=== PATIENT | female | born 1995 | race Caucasian/White ===

== ENCOUNTER 2019-01-28 03:53 | Emergency (ER) | payer OTHER ==
[2019-01-28 05:02] LABS: Absolute Lymphocytes (CBC) 1.9 K/uL (0.7-4.9); Basophils % 0.4 % (0-1.3); Eosinophils % 0.6 % (0-4.4); MPV 7.8 fL (7.6-11.3); Monocytes % 5.4 % (3.3-12.3); RBC Red Blood Cell Count 4.44 M/uL (3.86-4.86)
[2019-01-28 05:05] LABS: Urine Appearance TURBID; Urine Blood 3+ (NEG); Urine Color RED; Urine Glucose TRACE (NEG); Urine Protein 2+ (NEG); Urine Specific Gravity 1.025 (1.005-1.030)
[2019-01-28 05:09] LABS: Urine Bilirubin NEGATIVE (NEG); Urine Microscopic Reflex ORDER UMIC
[2019-01-28 05:12] LABS: BUN Blood Urea Nitrogen 6 mg/dL (7-18); Bicarbonate 25 mmol/L (21-32); Glucose Level 90 mg/dL (74-106); Potassium 3.7 mmol/L (3.5-5.1); Sodium Level 140 mmol/L (136-145)
[2019-01-28 05:23] LABS: Urine RBC TNTC /HPF (NONE SEEN)
[2019-01-28 05:26] LABS: Urine Mucus 2+ /HPF (NONE SEEN)
[2019-01-28 05:27] LABS: Urine Bacteria >50 /HPF (<20); Urine Culture Reflex Order REFLEXED
[2019-01-28] MEDS ORDERED: ACETAMINOPHEN 500 MG TAB PO PRN (07:34)
[2019-01-28] MEDS ORDERED: ONDANSETRON 4 MG/2 ML VIAL IV PRN (07:34)
[2019-01-28] MEDS ORDERED: MORPHINE 2 MG/ML SYR IV PRN (07:34)
[2019-01-28] MEDS ORDERED: NA CHLORIDE 0.9% 1,000 ML IV SCH (08:00)
--- NOTE | 2019-01-28 09:29 | RAD REPORT ---
EXAM DESCRIPTION: US - 1St Trimest Single 1St Fetus - 01/28/2019 9:20 am CLINICAL HISTORY: with pelvic pain and vaginal bleeding COMPARISON: None. FINDINGS: The uterus measures 12 x 7 x 11 centimeters. A normal appearing gestational sac is presen t within the endometrium. Within this is a yolk sac and pole with a crown-rump length 6.4 centi meters. Cardiac activity 165 beats per minute. 2.3 centimeters subchorionic bleed Partial placenta previa Right ovary normal in size and echotexture. Left ovary not seen. An adnexal mass is not noted. No significant free fluid is seen. IMPRESSION: Single live intrauterine with an estimated gestational age 12 weeks 6 days. E DD 08/06/2019 Small subchorionic bleed Partial placenta previa If survey is desired it should be performed in about 5-6 weeks
--- NOTE | 2019-01-28 09:35 | EDPHYS ---
Physician Documentation [facility] Name: Arnel Dhaliwal Age: 23 yrs Sex: Female : 1995 Arrival Date: 01/28/2019 Time: 03:58 Bed 16 Private MD: ED Physician Talib Gaines HPI: 01/28 06:20 This 23 yrs old Female presents to ER via Ambulatory with complaints of gs Vaginal Bleeding, + Preg <12wks. 06:20 The patient presents to the emergency department with vaginal bleeding, that is gs moderate. The estimated gestational age is 12 weeks. Associated signs and symptoms: Pertinent positives: cramping. The patient has not experienced similar symptoms in the past. PRODUCT SAFETY LEAD: 04:10 2, Full Term 1, Premature 0, 0, Living 1 jb4 Historical: - Allergies: 04:10 No Known Allergies; jb4 - Home Meds: 04:10 None [Active]; jb4 - PMHx: 04:10 None; jb4 - PSHx: 04:10 None; jb4 - Immunization history:: Adult Immunizations up to date. - Social history:: Smoking status: Patient/guardian denies using tobacco, Patient/guardian denies using alcohol. - Ebola Screening: : No symptoms or risks identified at this time. ROS: 06:20 All other systems are negative. gs Exam: 06:20 Head/Face: Normocephalic, atraumatic. Eyes: Pupils equal round and reactive to light, gs extra-ocular motions intact. Lids and lashes normal. Conjunctiva and sclera are non-icteric and not injected. Cornea within normal limits. Periorbital areas with no swelling, redness, or edema. ENT: Nares patent. No nasal discharge, no septal abnormalities noted. Tympanic membranes are normal and external auditory canals are clear. Oropharynx with no redness, swelling, or masses, exudates, or evidence of obstruction, uvula midline. Mucous membranes moist. Neck: Trachea midline, no thyromegaly or masses palpated, and no cervical lymphadenopathy. Supple, full range of motion without nuchal rigidity, or vertebral point tenderness. No Meningismus. Chest/axilla: Normal chest wall appearance and motion. Nontender with no deformity. No lesions are appreciated. Cardiovascular: Regular rate and rhythm with a normal S1 and S2. No gallops, murmurs, or rubs. Normal PMI, no JVD. No pulse deficits. Respiratory: Lungs have equal breath sounds bilaterally, clear to auscultation and percussion. No rales, rhonchi or wheezes noted. No increased work of breathing, no retractions or nasal flaring. Abdomen/GI: Soft, non-tender, with normal bowel sounds. No distension or tympany. No guarding or rebound. No evidence of tenderness throughout. Back: No spinal tenderness. No costovertebral tenderness. Full range of motion. Skin: Warm, dry with normal turgor. Normal color with no rashes, no lesions, and no evidence of cellulitis. MS/ Extremity: Pulses equal, no cyanosis. Neurovascular intact. Full, normal range of motion. Neuro: Awake and alert, GCS 15, oriented to person, place, time, and situation. Cranial nerves II-XII grossly intact. Motor strength 5/5 in all extremities. Sensory grossly intact. Cerebellar exam normal. Normal gait. 06:20 Constitutional: The patient appears alert, awake. 06:20 : Pelvic Exam: External exam: minimal bleeding, the nurse was present for the exam. Vital Signs: 04:10 BP 134 / 99; Pulse 80; Resp 16; Temp 98.5(O); Pulse Ox 99% on R/A; Weight 81.65 kg (R); jb4 Height 5 ft. 3 in. (160.02 cm) (R); Pain 6/10; 05:00 BP 125 / 84; Pulse 78; Resp 16; Pulse Ox 100% on R/A; jb4 06:00 BP 112 / 81; Pulse 76; Resp 18; Pulse Ox 100% ; jb4 07:00 BP 123 / 80; Pulse 80; Resp 17; Temp 98.3(O); Pulse Ox 99% on R/A; Pain 0/10; rb1 08:00 BP 118 / 79; Pulse 84; Resp 16; Temp 98.5(O); Pulse Ox 100% on R/A; Pain 0/10; rb1 09:50 BP 139 / 75 Supine; Pulse 73; Pulse Ox 100% on R/A; rb1 09:52 BP 124 / 81 Sitting; Pulse 66; Pulse Ox 100% on R/A; rb1 09:54 BP 131 / 84 Standing; Pulse 91; Pulse Ox 100% ; rb1 10:50 BP 132 / 80; Pulse 65; Resp 16; Temp 98.7(O); Pulse Ox 100% on R/A; Pain 0/10; rb1 04:10 Body Mass Index 31.89 (81.65 kg, 160.02 cm) jb4 MDM: 04:18 Patient medically screened. 01/28 04:21 Order name: Abo/rh Typing 01/28 04:21 Order name: Basic Metabolic Panel 01/28 04:21 Order name: CBC with Diff; Complete Time: 09:27 01/28 04:21 Order name: ABO/RH typing; Complete Time: 09:27 EDMS 01/28 04:21 Order name: Basic Metabolic Panel; Complete Time: 09:27 EDOK 01/28 05:00 Order name: Urinalysis; Complete Time: 09:27 EDOK 01/28 04:21 Order name: 1st Trimest Single 1st Fetus; Complete Time: 09:33 01/28 05:12 Order name: Urine Microscopic Only; Complete Time: 09:27 EDOK 01/28 05:28 Order name: Urine Culture EDOK 01/28 06:22 Order name: ABO/RH no charge; Complete Time: 09:27 EDOK 01/28 08:56 Order name: Quantitative Hcg [facility] 01/28 04:21 Order name: IV Saline Lock; Complete Time: 04:52 01/28 04:21 Order name: Labs collected and sent; Complete Time: 04:52 01/28 04:21 Order name: NPO; Complete Time: 04:37 01/28 04:21 Order name: Urine Dipstick-Ancillary (obtain specimen); Complete Time: 04:58 01/28 07:41 Order name: CONS Pharmacy Consult EDOK 01/28 07:42 Order name: Regular EDOK Administered Medications: 09:55 Drug: NS 0.9% 1000 ml Route: IV; Rate: 1 bolus; Site: left antecubital; rb1 11:03 Follow up: IV Status: Completed infusion rb1 Disposition: 01/28/19 09:34 Discharged to Home. Impression: Threatened . - Condition is Stable. - Discharge Instructions: Threatened Miscarriage, Vaginal Bleeding During , First Trimester, Vaginal Bleeding During , Second Trimester, First Trimester of , [id number], First Trimester of , Threatened Miscarriage, [id number], Pelvic Rest. - Prescriptions for Vitamin 27- 0.8 mg Oral Tablet - take 1 tablet by ORAL route once daily; 30 tablet. - Medication Reconciliation Form, Thank You Letter, Antibiotic Education, Prescription Opioid Use form. - Follow up: Private Physician; When: 2 - 3 days; Reason: Recheck today's complaints, Continuance of care, Re-evaluation by your physician. Follow up: Matti Young MD; When: 2 - 3 days; Reason: Recheck today's complaints, Re-evaluation by your physician. - Problem is new. - Symptoms have improved. Signatures: Dispatcher [employer] EDOK Talib Gaines MD MD cha Barber, Rebecca, RN RN rb1 Alex Garrido RN RN jb4 Tommie Villa MD MD gs Corrections: (The following items were deleted from the chart) 07:52 07:41 Comprehensive Metabolic Panel ordered. [facility] EDOK 07:52 07:41 Comprehensive Metabolic Panel ordered. [facility] EDOK 11:07 09:34 01/28/2019 09:34 Discharged to Home. Impression: Threatened . Condition rb1 is Stable. Forms are Medication Reconciliation Form, Thank You Letter, Antibiotic Education, Prescription Opioid Use. Follow up: Private Physician; When: 2 - 3 days; Reason: Recheck today's complaints, Continuance of care, Re-evaluation by your physician. Follow up: Matti Young; When: 2 - 3 days; Reason: Recheck today's complaints, Re-evaluation by your physician. Problem is new. Symptoms have improved. muriel
--- NOTE | 2019-01-28 09:35 | ER ---
Nurse's Notes [facility] Name: Arnel Dhaliwal Age: 23 yrs Sex: Female : 1995 Arrival Date: 01/28/2019 Time: 03:58 Bed 16 Private MD: Diagnosis: Threatened Presentation: 01/28 04:10 Presenting complaint: Patient states: I woke up and was bleeding a lot and I am 12 jb4 weeks . 04:10 Transition of care: patient was not received from another setting of care. Onset of jb4 symptoms was January 28, 2019. Risk Assessment: Do you want to hurt yourself or someone else? Patient reports no desire to harm self or others. Initial Sepsis Screen: Does the patient meet any 2 criteria? No. Patient's initial sepsis screen is negative. Does the patient have a suspected source of infection? No. Patient's initial sepsis screen is negative. Care prior to arrival: None. 04:10 Method Of Arrival: Ambulatory jb4 04:10 Acuity: RAYMOND 3 jb4 04:10 Acuity: RAYMOND 3 jb4 POLITICAL CONSULTANT: 04:10 2, Full Term 1, Premature 0, 0, Living 1 jb4 Historical: - Allergies: 04:10 No Known Allergies; jb4 - Home Meds: 04:10 None [Active]; jb4 - PMHx: 04:10 None; jb4 - PSHx: 04:10 None; jb4 - Immunization history:: Adult Immunizations up to date. - Social history:: Smoking status: Patient/guardian denies using tobacco, Patient/guardian denies using alcohol. - Ebola Screening: : No symptoms or risks identified at this time. Screenin:00 Abuse screen: Denies threats or abuse. Nutritional screening: No deficits noted. jb4 Tuberculosis screening: No symptoms or risk factors identified. Fall Risk IV access (20 points). Total Thomson Fall Scale indicates No Risk (0-24 pts). Assessment: 04:10 Obstetrical Assessment: General assessment: awake and alert, anxious, skin warm and jb4 dry, respirations even and unlabored. General: Appears in no apparent distress. uncomfortable, Behavior is cooperative, anxious. Pain: Complains of pain in abdomen Pain does not radiate. Pain currently is 7 out of 10 on a pain scale. Quality of pain is described as crampy, Pain began 2 hours ago. Neuro: Level of Consciousness is awake, alert, obeys commands, Oriented to person, place, time, situation. Cardiovascular: Patient's skin is warm and dry. Respiratory: Airway is patent Respiratory effort is even, unlabored, Respiratory pattern is regular, symmetrical. GI: No signs and/or symptoms were reported involving the gastrointestinal system. : Urine is khang blood, Reports vaginal bleeding that is heavy flow. EENT: No signs and/or symptoms were reported regarding the EENT system. Derm: Skin is intact, Skin is pink, warm \T\ dry. Musculoskeletal: Circulation, motion, and sensation intact. 05:00 Reassessment: Patient appears in no apparent distress at this time. Patient and/or jb4 family updated on plan of care and expected duration. Pain level reassessed. Patient is alert, oriented x 3, equal unlabored respirations, skin warm/dry/pink. PT appears more relaxed and less anxious. 06:11 Reassessment: Patient appears in no apparent distress at this time. Patient and/or jb4 family updated on plan of care and expected duration. Pain level reassessed. Patient is alert, oriented x 3, equal unlabored respirations, skin warm/dry/pink. 07:00 General: Appears in no apparent distress. comfortable, Behavior is calm, cooperative. rb1 Pain: Denies pain. Neuro: Level of Consciousness is awake, alert, obeys commands, Oriented to person, place, time, situation. Cardiovascular: Capillary refill < 3 seconds is brisk in bilateral fingers. Respiratory: Airway is patent Respiratory effort is even, unlabored, Respiratory pattern is regular, symmetrical. GI: No signs and/or symptoms were reported involving the gastrointestinal system. : Reports vaginal bleeding that is bright red, light flow, no clots. Derm: Skin is pink, warm \T\ dry. 07:55 Reassessment: Called and left a voicemail for US to see when the US would be done. rb1 08:00 Reassessment: Patient appears in no apparent distress at this time. No changes from rb1 previously documented assessment. 08:01 Reassessment: Called ext. [id number] to see when the US would be done. They said that they rb1 will contact the [employer] to let him know about the US again. 09:00 Reassessment: PT. went to US via wheelchair. rb1 09:00 Reassessment: Patient appears in no apparent distress at this time. rb1 10:00 Reassessment: No changes from previously documented assessment. Patient and/or family rb1 updated on plan of care and expected duration. Pain level reassessed. Patient is alert, oriented x 3, equal unlabored respirations, skin warm/dry/pink. Discharge pending due to IV Fluids infusing. Patient denies pain at this time. 11:00 Reassessment: Patient appears in no apparent distress at this time. Patient and/or rb1 family updated on plan of care and expected duration. Pain level reassessed. Patient is alert, oriented x 3, equal unlabored respirations, skin warm/dry/pink. Patient denies pain at this time. Vital Signs: 04:10 BP 134 / 99; Pulse 80; Resp 16; Temp 98.5(O); Pulse Ox 99% on R/A; Weight 81.65 kg (R); jb4 Height 5 ft. 3 in. (160.02 cm) (R); Pain 6/10; 05:00 BP 125 / 84; Pulse 78; Resp 16; Pulse Ox 100% on R/A; jb4 06:00 BP 112 / 81; Pulse 76; Resp 18; Pulse Ox 100% ; jb4 07:00 BP 123 / 80; Pulse 80; Resp 17; Temp 98.3(O); Pulse Ox 99% on R/A; Pain 0/10; rb1 08:00 BP 118 / 79; Pulse 84; Resp 16; Temp 98.5(O); Pulse Ox 100% on R/A; Pain 0/10; rb1 09:50 BP 139 / 75 Supine; Pulse 73; Pulse Ox 100% on R/A; rb1 09:52 BP 124 / 81 Sitting; Pulse 66; Pulse Ox 100% on R/A; rb1 09:54 BP 131 / 84 Standing; Pulse 91; Pulse Ox 100% ; rb1 10:50 BP 132 / 80; Pulse 65; Resp 16; Temp 98.7(O); Pulse Ox 100% on R/A; Pain 0/10; rb1 04:10 Body Mass Index 31.89 (81.65 kg, 160.02 cm) jb4 ED Course: 03:58 Patient arrived in ED. ag3 04:09 Alex Garrido, RN is Primary Nurse. jb4 04:10 Tommie Villa MD is Attending Physician. gs 04:10 Arm band placed on right wrist. jb4 04:21 Triage completed. jb4 04:45 Initial lab(s) drawn, by me, sent to lab. Inserted saline lock: 22 gauge in left jb4 antecubital area, using aseptic technique. Blood collected. 05:00 Patient has correct armband on for positive identification. Bed in low position. Call jb4 light in reach. Side rails up X 1. Pulse ox on. NIBP on. 08:59 Attending Physician role handed off by Tommie Villa MD [facility] 08:59 Talib Gaines MD is Attending Physician. muriel 09:17 Patient moved back from ultrasound. tawanna 09:21 US 1st Trimest Single 1st Fetus In Process Unspecified. EDMS 09:33 Matti Young MD is Referral Physician. muriel 11:07 No provider procedures requiring assistance completed. IV discontinued, intact, rb1 bleeding controlled, No redness/swelling at site. Pressure dressing applied. Administered Medications: 09:55 Drug: NS 0.9% 1000 ml Route: IV; Rate: 1 bolus; Site: left antecubital; rb1 11:03 Follow up: IV Status: Completed infusion rb1 Outcome: 09:34 Discharge ordered by MD. muriel 11:07 Patient left the ED. rb1 11:07 Discharged to home ambulatory, with family. rb1 11:07 Condition: stable 11:07 Discharge instructions given to patient, Instructed on discharge instructions, follow up and referral plans. medication usage, Demonstrated understanding of instructions, follow-up care, medications, Prescriptions given X 1. Signatures: Dispatcher [employer] EDOR Talib Gaines MD MD cha Barber, Rebecca, RN RN rb1 Blaze Cook jd, James, RN RN jb4 Tommie Villa MD MD gs Gomez, Alice ag3 Corrections: (The following items were deleted from the chart) 05:01 05:00 Fall Risk IV access (20 points). jb4 jb4
[2019-01-28] MEDS ORDERED: NA CHLORIDE 0.9% 1,000 ML ONE (10:13)
== END 2019-01-28 11:07 | disposition home or self-care (01) ==
LOC: ER 03:53 → SUATTDRO 03:53 → UNDOADMOB 07:36 → ERHOLD 07:36 → ER 11:07
PROVIDERS: ATTEND Family Medicine
DX: O20.0 Threatened abortion (principal); Z3A.12 12 weeks gestation of pregnancy
CPT/HCPCS: 36415; 76801; 80048; 81003; 81015; 84702; 85025; 86900; 86901; 87086; 87088; 96360; 99284; J7030